=== PATIENT | male | born 1965 | race Caucasian/White ===

== ENCOUNTER 2018-11-04 11:07 | Inpatient (IN) | payer OTHER ==
[~2018-11-04] VITALS: Ht 177.8 cm; Wt 113.4 kg
[2018-11-04] VITALS (15 sets, daily range): BP systolic 109–132; BP diastolic 72–92
[2018-11-04] MEDS ORDERED: ASPIRIN 81 MG CHEW TAB PO ONE (12:15)
[2018-11-04 12:29] LABS: BASOPHILS % 0.4 % (0.0-1.0); EOSINOPHILS # (AUTO) 0.2 (0.0-0.4); EOSINOPHILS % 2.4 % (0.0-6.0); HEMATOCRIT 47.6 % (38.2-49.6); HEMOGLOBIN 16.9 g/dL (14.0-18.0); LYMPHOCYTES # (AUTO) 1.8 (1.0-3.2); LYMPHOCYTES % 24.1 % (18.0-39.1); MEAN CORPUSCULAR HEMOGLOBIN 33.9 pg (28-32); MEAN CORPUSCULAR HGB CONC 35.5 g/dL (31-35); MEAN CORPUSCULAR VOLUME 95.6 fL (81-99); MONOCYTES # (AUTO) 0.5 (0.2-0.8); MONOCYTES % 6.5 % (4.4-11.3); NEUTROPHILS # (AUTO) 4.9 (2.1-6.9); NEUTROPHILS % 66.3 % (38.7-80.0); PLATELET COUNT 154 x10e3/uL (140-360); RED BLOOD COUNT 4.98 x10e6/uL (4.3-5.7); RED CELL DISTRIBUTION WIDTH 13.2 % (11.7-14.4)
[2018-11-04 12:37] LABS: INR 0.91; PROTHROMBIN TIME 12.7 seconds (11.9-14.5)
[2018-11-04 12:38] LABS: PARTIAL THROMBOPLASTIN TIME 31.5 seconds (23.8-35.5)
[2018-11-04 12:47] LABS: ALANINE AMINOTRANSFERASE 41 IU/L (0-55); ALBUMIN 4.3 g/dL (3.5-5.0); ALBUMIN/GLOBULIN RATIO 1.2 (0.8-2.0); ALKALINE PHOSPHATASE 63 IU/L (40-150); ANION GAP 13.2 mmol/L (8-16); BLOOD UREA NITROGEN 15 mg/dL (7-26); BUN/CREATININE RATIO 15 (6-25); CALCIUM 10.4 mg/dL (8.4-10.2); CARBON DIOXIDE 25 mmol/L (22-29); CHLORIDE 103 mmol/L (98-107); CREATINE KINASE 208 IU/L (30-200); EST GLOMERULAR FILTRATION RATE > 60 ML/MIN (60-); GLUCOSE 121 mg/dL (74-118); POTASSIUM 4.2 mmol/L (3.5-5.1); SODIUM 137 mmol/L (136-145)
--- NOTE | 2018-11-04 12:47 | Diagnostic Imaging Report ---
EXAMINATION: CHEST SINGLE (PORTABLE) INDICATION: Chest pain. COMPARISON: None FINDINGS: TUBES and LINES: None. LUNGS: Lungs are not well inflated, which limits sensitivity and specificity. There is central vascular congestion. There is no evidence of pneumonia or pulmonary edema. PLEURA: No pleural effusion or pneumothorax. HEART AND MEDIASTINUM: The cardiomediastinal silhouette is unremarkable. BONES AND SOFT TISSUES: No acute osseous abnormality. UPPER ABDOMEN: No free air under the diaphragm. IMPRESSION: No acute radiographic abnormality. Signed by: Dr. Krysten Morales MD on 11/04/2018 12:44 PM
[2018-11-04 12:51] LABS: CLARITY,URINE CLEAR (CLEAR); COLOR,URINE YELLOW (YELLOW)
[2018-11-04 12:52] LABS: BILIRUBIN,URINE NEGATIVE (NEGATIVE); KETONES,URINE NEGATIVE (NEGATIVE); LEUKOCYTE ESTERASE ,URINE NEGATIVE (NEGATIVE); NITRITE,URINE NEGATIVE (NEGATIVE); PROTEIN,URINE DIPSTICK NEGATIVE (NEGATIVE); URINE UROBILINOGEN 0.2 mg/dL (0.2 - 1)
[2018-11-04] MEDS ORDERED: MORPHINE SULFATE 2 MG/ML SYR 1ML IV PRN (13:30)
[2018-11-04] MEDS ORDERED: ONDANSETRON HCL INJ 2MG/ML 2ML 2 MG/ML VIAL IV PRN (13:30)
[2018-11-04] MEDS ORDERED: MORPHINE SULFATE INJ 4 MG/ML INJ 1ML IV PRN ×3 (13:45→21:00)
[2018-11-04] MEDS ORDERED: LOSARTAN-HCTZ1 EAC2 PO (13:50)
[2018-11-04] MEDS ORDERED: CRESTOR10 MG PO (13:50)
[2018-11-04] MEDS ORDERED: METOPROLOL SUCC25 MG PO (13:50)
[2018-11-04] MEDS: FAMOTIDINE 20 MG/2 ML VIAL IV SCH ×2 (14:00→22:09)
--- OUTSIDE RECORDS SUMMARY | 2018-11-04 14:39 | XMS REPORT ---
Author Author [facility] Address Unknown Phone Unavailable Care Team Providers Care Phytochemistry Professor Name Role Phone Deborah CRUZ Unavailable Unavailable Problems This patient has no known problems. Allergies, Adverse Reactions, Alerts This patient has no known allergies or adverse reactions. Medications This patient has no known medications. Results Test Description Test Time Test Comments Text Results Atomic Results Result Comments CHEST SINGLE (PORTABLE) 2018-11-04 12:36:00 [facility] [address] [place] [address] Patient Name: NII EATON MR #: [id number] : 1965 Age/Sex: 53/M Req #: [id number] Adm Physician: Ordered by: NAHED CRUZ MD Report #: [id number] Location: ER Room/Bed: Procedure: [id number] DX/CHEST SINGLE (PORTABLE) Exam Date: 11/04/18 Exam Time: 1222 REPORT STATUS: Signed EXAMINATION: CHEST SINGLE (PORTABLE) INDICATION: Chest pain. COMPARISON: None FINDINGS: TUBES and LINES: None. LUNGS: Lungs are not well inflated, which limits sensitivity and specificity. There is central vascular congestion. There is no evidence of pneumonia or pulmonary edema. PLEURA: No pleural effusion or pneumothorax. HEART AND MEDIASTINUM: The cardiomediastinal silhouette is unremarkable. BONES AND SOFT TISSUES: No acute osseous abnormality. UPPER ABDOMEN: No free air under the diaphragm. IMPRESSION: No acute radiographic abnormality. Signed by: Dr. Simona Molina MD on 11/04/2018 12:44 PM Dictated By: SIMONA MOLINA MD [id number] Transcribed By: HUBER on 11/04/18 1244 COPY TO: NAHED CRUZ MD
[2018-11-04] MEDS ORDERED: SODIUM CHLORIDE 0.9% 1000ML 1,000 ML IV ONE (15:00)
[2018-11-04] MEDS ORDERED: MIDAZOLAM HCL 2 MG/2 ML VIAL ONE ×4 (16:00→16:24)
[2018-11-04] MEDS ORDERED: LIDOCAINE HCL 2% LOCAL 20 ML VIAL ONE (16:01)
[2018-11-04] MEDS ORDERED: IOPAMIDOL 370 MG/ML 200 ML INFUS..BTL INJ ONE ×3 (16:01→16:52)
[2018-11-04] MEDS ORDERED: HEPARIN SOD/SOD CHLORIDE 2,000 ML ONE (16:01)
[2018-11-04] MEDS ORDERED: FENTANYL CITRATE/PF 100MCG/2 ML INJ ONE ×2 (16:01→17:39)
[2018-11-04] MEDS ORDERED: SODIUM CHLORIDE 0.9% 1000ML 1,000 ML ONE ×5 (16:01→17:07)
[2018-11-04] MEDS ORDERED: BIVALRIUDIN 250 MG/VIAL VIAL IV ONE ×2 (16:25→17:06)
[2018-11-04] MEDS ORDERED: SODIUM CHLORIDE 0.9% 50ML 50 ML ONE ×2 (16:26→17:08)
[2018-11-04] MEDS ORDERED: ASPIRIN 325 MG TAB ONE (16:27)
[2018-11-04] MEDS ORDERED: TICAGRELOR 90 MG TABLET ONE (16:27)
[2018-11-04] MEDS ORDERED: NITROGLYCERIN/D5W 200 MCG/ML 250 ML ONE (16:32)
[2018-11-04] MEDS ORDERED: NITROGLYCERIN 0.4 MG SUBL ONE (17:27)
--- NOTE | 2018-11-04 17:35 | NUR ---
Nitro 20mcg/minn started for persistent left harm pain unrelieved by analgescs. Dr purvis notified of HR beginning to become variable from 70-110's. PT has already been instructed not to bare down. rght groin dressing CDI. positive neurovascular function to lower right extremity -cgf
--- NOTE | 2018-11-04 17:40 | NUR ---
Fentanyl [address] purvis. family at bedside - [facility]
--- NOTE | 2018-11-04 18:30 | NUR ---
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 He says he has left upper back pain behind his left shoulder area that radiates down his left arm. Says his pain level is a "3" on a scale of 1- 10, with 10 being the most intense pain. Patient instructed to lay flat until 10pm and he verbalized understanding this. Respirations are even and unlabored. V/S are stable and his cardiac rhythm is Normal Sinus Rhythm. Family at bedside.
--- NOTE | 2018-11-04 18:40 | NUR ---
Right groin dressing is dry and intact without any ecchymosis. Site is soft upon palpation. 2+ Pedal Pulses bilaterally and both feet are warm and pink.
[2018-11-04] MEDS ORDERED: NITROGLYCERIN/D5W 200 MCG/ML 250 ML IV SCH (21:00)
[2018-11-04 21:07] LABS: CREATINE KINASE MB 15.9 ng/mL (0-5.0)
[2018-11-04] MEDS: LIDOCAINE 5% PATCH TP SCH (22:09)
[2018-11-04] MEDS: ACETAMINOPHEN 325 MG TAB PO PRN (22:10)
[2018-11-04] MEDS ORDERED: FAMOTIDINE 20 MG/2 ML VIAL IV ONE (22:11)
[2018-11-04] MEDS: ZOLPIDEM TARTRATE 10 MG TAB PO PRN (23:31)
[2018-11-05] VITALS (13 sets, daily range): BP systolic 106–146; BP diastolic 67–118
--- NOTE | 2018-11-05 01:01 | Operative Report ---
DATE OF PROCEDURE: 11/04/2018 SURGEON: Chan Pandey MD PROCEDURES: 1. Intracoronary stent placement in the left anterior descending artery. 2. Left heart catheterization. INDICATION: Unstable angina. COMPLICATIONS: None. ANESTHESIA: Versed, fentanyl, and lidocaine. TECHNIQUE: The right groin was draped and prepped in the usual fashion. The area was anesthetized with lidocaine. Standard Seldinger technique was used to place a 6-Ukrainian sheath into the right femoral artery without difficulty. A JL4 catheter was used to selectively engage the left coronary artery. A 3DRC catheter was used to selectively engage the right coronary artery. A pigtail catheter was used to perform a left ventriculogram. Attention was then turned to the 95% stenosis in the mid left anterior descending artery. The patient was bolused with Angiomax and given 180 mg of Brilinta. An XB 3.5 guiding catheter was used to selectively engage the left coronary artery. A Whisper wire was used to cross 95% stenosis. The area was predilated with a 2.5 mm x 12 mm balloon. A 3.0 x 12 mm stent was then deployed at 16 atmospheres for 30 seconds with minimal residual stenosis. An Angio-Seal device was used to close. RESULTS: As follows: 1. Normal left main trunk. 2. There is a large left anterior descending artery, which gave rise to medium-sized diagonal branch. There was 95% stenosis right at the OM in the midportion of the left anterior descending artery. 3. There was a medium-sized AV circumflex artery, which gave rise to a large bifurcating obtuse marginal branch. There was about 80% stenosis in the proximal AD circumflex artery. 4. There was a large dominant right coronary artery with minimal disease. 5. There was normal left ventricular size and function with an ejection fraction of 60%. CONCLUSION: Successful stent placement in the left anterior descending artery without complication. Chan Pandey MD DSH/MODL /[id number] cc: Brandin Lynch MD
[2018-11-05 04:55] LABS: BASOPHILS % 0.4 % (0.0-1.0); EOSINOPHILS # (AUTO) 0.1 (0.0-0.4); EOSINOPHILS % 1.4 % (0.0-6.0); HEMATOCRIT 43.7 % (38.2-49.6); HEMOGLOBIN 15.3 g/dL (14.0-18.0); LYMPHOCYTES # (AUTO) 1.9 (1.0-3.2); LYMPHOCYTES % 18.5 % (18.0-39.1); MEAN CORPUSCULAR HEMOGLOBIN 33.2 pg (28-32); MEAN CORPUSCULAR VOLUME 94.8 fL (81-99); MONOCYTES # (AUTO) 0.8 (0.2-0.8); MONOCYTES % 7.7 % (4.4-11.3); NEUTROPHILS # (AUTO) 7.3 (2.1-6.9); NEUTROPHILS % 71.7 % (38.7-80.0); PLATELET COUNT 152 x10e3/uL (140-360); RED BLOOD COUNT 4.61 x10e6/uL (4.3-5.7); RED CELL DISTRIBUTION WIDTH 13.2 % (11.7-14.4)
[2018-11-05 05:23] LABS: CREATINE KINASE MB 59.2 ng/mL (0-5.0)
[2018-11-05 06:04] LABS: ALANINE AMINOTRANSFERASE 39 IU/L (0-55); ALBUMIN 3.8 g/dL (3.5-5.0); ALBUMIN/GLOBULIN RATIO 1.2 (0.8-2.0); ALKALINE PHOSPHATASE 53 IU/L (40-150); ANION GAP 14.9 mmol/L (8-16); BLOOD UREA NITROGEN 12 mg/dL (7-26); BUN/CREATININE RATIO 15 (6-25); CALCIUM 9.3 mg/dL (8.4-10.2); CARBON DIOXIDE 20 mmol/L (22-29); CHLORIDE 106 mmol/L (98-107); CHOL/HDL RATIO 4.2 (3.9-4.7); CHOLESTEROL 193 MD/DL (0-199); CREATININE, SERUM 0.82 mg/dL (0.72-1.25); EST GLOMERULAR FILTRATION RATE > 60 ML/MIN (60-); GLUCOSE 110 mg/dL (74-118); HDL CHOLESTEROL 46 MG/DL (40-60); LDL CHOLESTEROL 119 MG/DL (60-130); POTASSIUM 3.9 mmol/L (3.5-5.1); SODIUM 137 mmol/L (136-145); TRIGLYCERIDES 142 MG/DL (0-149)
[2018-11-05] MEDS ORDERED: SODIUM CHLORIDE 0.9% 1000ML 1,000 ML IV SCH (07:00)
[2018-11-05] MEDS: ASPIRIN 81 MG ENTERIC COATED PO SCH (08:04)
[2018-11-05] MEDS: ACETAMINOPHEN 325 MG TAB PO PRN (08:05)
[2018-11-05] MEDS: TICAGRELOR 90 MG TABLET PO SCH ×2 (08:05→17:12)
[2018-11-05] MEDS: LIDOCAINE 5% PATCH TP SCH (08:19)
[2018-11-05] MEDS: LOSARTAN POTASSIUM 100 MG TAB PO SCH (08:30)
[2018-11-05] MEDS: HYDROCHLOROTHIAZIDE 25 MG TAB PO SCH (08:31)
[2018-11-05] MEDS: METOPROLOL SUCCINATE 25 MG TAB XL PO SCH (08:31)
[2018-11-05] MEDS ORDERED: TRAMADOL HCL 50 MG TAB PO PRN (08:45)
[2018-11-05] MEDS ORDERED: FAMOTIDINE 20 MG/2 ML VIAL IV SCH (09:00)
[2018-11-05] MEDS ORDERED: ASPIRIN 325 MG TAB PO SCH (09:00)
[2018-11-05] MEDS ORDERED: ASPIRIN 81 MG ENTERIC COATED PO SCH (09:00)
[2018-11-05] MEDS ORDERED: NON-FORMULARY MEDICATION (Losartan/Hydrochlorothiazide (Losartan-Hctz 100-12.5 Mg Tab) 1 T PO SCH (09:00)
--- NOTE | 2018-11-05 10:20 | NUR ---
PT AMBULATED IN ROOM. RESTING IN RECLINER DENIES DIZZINESS OR CHEST PAIN.
--- NOTE | 2018-11-05 13:59 | NUR ---
CASE MANAGEMENT INITIAL ASSESSMENT [employer] to bedside to discuss plan of care with patient/family. CM/SW role and care transitions discussed. Anticipated discharge plan discussed along with duration of care. CM/SW discussed patients right to make decisions in care. CM/SW work hours given. Patient lives: W ROOM MATE IN A 1 STORY HOME Admit/Transfer: ER Hospital/ER visits since last admit: NONE POA/Emergency contact: AURORA THURMAN / [phone] Current/Previous Home Health: NONE PCP/Follow-up Care: DR. TOLEDO Current/Previous DME: NONE Other Services: NONE Employment Status: [employer] Areas of Concerns: NONE Referral Needs: NONE Education Needs: DIET AND EXERCISE IMM/DELGADO given and signed (if applicable): N/A Goal for discharge: RETURN HOME CM/SW left business card at the bedside with contact information. Name and number was also written on the patients whiteboard. Patient verbalized understanding of discussion. CM will follow-up with ongoing discharge and transition of care needs.
--- NOTE | 2018-11-05 14:34 | NUR ---
Nutrition Screen Note RD Recommendation for Physician: - Continue Cardiac diet - Diet education provided 11/05 Plan of Care: RD following, monitoring for tolerance and adequacy Nutrition reason for involvement: Nutrition Risk Trigger- MST Primary Diagnose(s): chest pain PMH: no H&P in electronic chart Ht: 70 in Wt: 250 lb BMI: 35.9 kg/m2 IBW: [address] Assessment: (11/05) 53 YOM admitted for chest pain, seen today per MST score. 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 Pt denies GI distress. Pt reports intentional 60# wt loss over the past year following a keto diet. Pt receptive to diet education at time of visit, pt educated on heart healthy nutrition therapy emphasizing high sodium foods to avoid, high fat foods to avoid, and encouraged intake of fresh vegetables, fruits and whole grains. All questions answered at time of visit. Chart reviewed. Labs and meds reviewed. Will monitor and continue to follow. Current Diet: Cardiac Malnutrition Evaluation (11/05) The patient does not meet criteria for a specified degree of malnutrition at this time. Will re-evaluate at follow-up as appropriate. Diet Education Needs Assessment: Diet education indicated, pt receptive- diet education provided 11/05. Learner(s): pt Barriers: none Cultural/Language Modifications: none Readiness: ready Method: handout, discussion Topics: heart healthy nutrition therapy Understanding/Compliance: good Nutrition Care Level: Low Signed: Traci Guevara RD, LD, [facility]
[2018-11-05] MEDS ORDERED: ATORVASTATIN 20 MG TAB PO SCH (17:00)
[2018-11-05] MEDS ORDERED: ONDANSETRON HCL 4 MG ORAL DISINTEGRATING TAB PO PRN (17:30)
--- NOTE | 2018-11-05 19:16 | NUR ---
Patient was received lying in bed. Family at bedside. AAO x 4. Patient had no complaints of pain. Respirations even and non-labored. Patient instructed to call for assistance when needed. Call light within reach.
[2018-11-05] MEDS: FAMOTIDINE 20 MG TAB PO SCH (20:52)
[2018-11-05] MEDS ORDERED: ATORVASTATIN 40 MG TAB PO SCH (21:00)
[2018-11-05] MEDS ORDERED: LIDOCAINE 5% PATCH TP SCH (21:00)
[2018-11-05] MEDS: ZOLPIDEM TARTRATE 10 MG TAB PO PRN (21:54)
--- NOTE | 2018-11-06 01:37 | Consultation ---
DATE OF CONSULTATION: HISTORY OF PRESENT ILLNESS: The patient is a 53-year-old gentleman with a history of left shoulder pain. The patient started with left shoulder pain for a couple of months ago, was treated with anti-inflammatories. Workup was done and the patient was found to have coronary artery disease. A stent in the LAD was placed by Dr. Pandey and also the patient has an 80% occlusive lesion in the circumflex and minimal disease in the RCA. The patient continues to have chest pain despite the stent being placed and the patient describes pain as 6/10, especially on exertion and then dissipates. The patient has to take anti-inflammatory i.e. Ultracet and the patient's pain dissipates. Currently, the patient is on lidocaine patch and the pain is still persistent. PAST MEDICAL HISTORY: History of hyperlipidemia, history of hypertension. FAMILY HISTORY: Positive for history of heart disease. SOCIAL HISTORY: Noncontributory. ALLERGIES: THE PATIENT IS ALLERGIC TO DOXYCYCLINE. MEDICATIONS: The patient takes losartan, hydrochlorothiazide, metoprolol, and rosuvastatin. Currently, the patient is on lidocaine and atorvastatin. SURGICAL HISTORY: Noncontributory. PHYSICAL EXAMINATION: GENERAL: The patient is alert and oriented x3. HEENT: Normocephalic, atraumatic. Pupils are reactive to light and accommodation. CVS: S1, S2 normal. Regular rate and rhythm. SHOULDER: Negative Broussard signs. Good range of motion. Positive for tenderness on the infrascapular and suprascapular area. The patient with sharp tenderness on those areas. ABDOMEN: Nontender, nondistended. EXTREMITIES: No clubbing, no cyanosis, no edema. LABORATORY VALUES: CBC normal. Chemistries all normal. Troponins were elevated at 7.310 yesterday. ASSESSMENT: 1. Non-STEMI with stent in the LAD. 2. Left shoulder pain. Suggest MRI of the T-spine and the shoulder to rule out any etiology. 3. Hypertension. Continue with antihypertensive. 4. Hyperlipidemia. Continue antihyperlipidemic agents. 5. Coronary artery disease. We will continue to monitor the patient along with Dr. Pandey. Further recommendation per clinical course. We will possibly discharge tomorrow after possible MRI of the T-spine and the shoulder. MD RORY Beasley/MODL /[id number]
[2018-11-06 04:00] VITALS: BP 116/65
--- NOTE | 2018-11-06 07:34 | Progress Note ---
DATE: SUBJECTIVE: The patient is a 53-year-old gentleman, status post cardiac stent to LAD secondary to NSTEMI. The patient is currently complaining of left shoulder pain. The angioplasty did not help with the pain in the shoulder and are radiation to the arm. The patient is scheduled for an MRI today to rule out any other pathology or musculoskeletal pathology. The patient also has 80% stent of the circumflex, which will be repaired or stented in another date, approximately 1 to 2 weeks from today. OBJECTIVE: VITAL SIGNS: Currently, temperature is 97.5, pulse of 88, respirations of 21, blood pressure is 111/65. HEENT: Normocephalic, atraumatic. Pupils are reactive to light and accommodation. CVS: S1 and S2 are normal. Regular rate and rhythm. ABDOMEN: Nontender, nondistended. EXTREMITIES: No clubbing, no cyanosis, no edema. MUSCULOSKELETAL SYSTEM: Positive for tenderness in the thoracic spine and also in the left latissimus dorsi and infraspinatus area. ASSESSMENT: 1. Wqv-LG-zqmyynifu myocardial infarction. The patient is currently on losartan and aspirin at this time. The patient is also on beta-blockade and lovastatin. 2. Left-sided shoulder pain. We will do an MRI. The patient can be discharged home once the MRI is negative. The patient also needs an anti-platelet medication, which will be discussed with Dr. Pnadey. 3. Further recommendation per clinical course. The patient can be discharged home from Medicine standpoint if MRI is negative and will need a stent in the later date. MD RORY Beasley/GENIL /[id number]
[2018-11-06 07:47] VITALS: BP 126/73
[2018-11-06] MEDS: TICAGRELOR 90 MG TABLET PO SCH (07:49)
[2018-11-06] MEDS: ASPIRIN 81 MG ENTERIC COATED PO SCH (07:49)
[2018-11-06] MEDS: FAMOTIDINE 20 MG TAB PO SCH (07:50)
[2018-11-06] MEDS: HYDROCHLOROTHIAZIDE 25 MG TAB PO SCH (07:50)
[2018-11-06] MEDS: METOPROLOL SUCCINATE 25 MG TAB XL PO SCH (07:50)
[2018-11-06] MEDS: LOSARTAN POTASSIUM 100 MG TAB PO SCH (07:50)
--- NOTE | 2018-11-06 10:25 | NUR ---
UNABLE TO DO MRI DUE TO STENT PLACEMENT ON SATURDAY. CAN DO AFTER 6 WEEKS PER RADIOLOGY. LEFT MESSAGE FOR DR. ALEXIS. AWAITING CALL BACK.
--- NOTE | 2018-11-06 11:21 | NUR ---
RE-PAGED DR. ALEXIS AT THIS TIME. AWAITING CALL BACK.
[2018-11-06 11:53] VITALS: BP 115/73
--- NOTE | 2018-11-06 11:58 | NUR ---
RECEIVED CALL BACK FROM DR. ALEXIS. STATES HAVE PT F/U OUTPT FOR MRI AND CAN D/C HOME. SPOKE TO JORGE REBOLLEDO WITH DR. Lori HOOPER STATES OK TO D/C HOME.
--- NOTE | 2018-11-06 12:30 | NUR ---
DISCHARGE INSTRUCTIONS GIVEN. PT VERBALIZED UNDERSTANDING. BILAT AC IV D/C AND PRESSURE DRESSING APPLIED. PT AWAITING RIDE HOME.
== END 2018-11-06 12:50 | disposition home or self-care (01) | DRG 247 ==
LOC: ER 11:07 → UNDOADMOB 14:37 → ERHOLD 14:37 → CATH LAB 17:43 → ICU 18:21 → MED/SURG2 11-05 17:13
PROVIDERS: ADMIT Internal Medicine Cardiovascular Disease; ATTEND Internal Medicine Cardiovascular Disease
PROC: 027034Z Dilation of Coronary Artery, One Artery with Drug-eluting Intraluminal Device, Percutaneous Approach (ICD-10-PCS; principal; 2018-11-04)
PROC: 4A023N7 Measurement of Cardiac Sampling and Pressure, Left Heart, Percutaneous Approach (ICD-10-PCS; 2018-11-04)
PROC: B2111ZZ Fluoroscopy of Multiple Coronary Arteries using Low Osmolar Contrast (ICD-10-PCS; 2018-11-04)
PROC: B2151ZZ Fluoroscopy of Left Heart using Low Osmolar Contrast (ICD-10-PCS; 2018-11-04)
DX: I21.4 Non-ST elevation (NSTEMI) myocardial infarction (principal); I25.110 Atherosclerotic heart disease of native coronary artery with unstable angina pectoris; I10 Essential (primary) hypertension; E78.5 Hyperlipidemia, unspecified; Z95.5 Presence of coronary angioplasty implant and graft; E66.9 Obesity, unspecified; Z68.35 Body mass index [BMI] 35.0-35.9, adult
CPT/HCPCS: 36415; 71045; 80053; 80061; 81001; 82550; 82553; 83036; 83880; 84484; 85025; 85610; 85730; 92928; 93005; 93458; 99284; C1725; C1769; C1874; C1887; J0583; J2001; J2250; J2270; J7030; Q9967

== ENCOUNTER 2018-11-15 12:00 | Observation (INO) | payer OTHER ==
[~2018-11-15] VITALS: Ht 177.8 cm; Wt 109.9 kg
[~2018-11-15 12:00] MED LIST: CRESTOR10 MG PO; LOSARTAN-HCTZ1 EAC2 PO; METOPROLOL SUCC25 MG PO
[2018-11-15 12:32] LABS: BASOPHILS % 0.4 % (0.0-1.0); EOSINOPHILS # (AUTO) 0.2 (0.0-0.4); EOSINOPHILS % 2.2 % (0.0-6.0); HEMATOCRIT 46.2 % (38.2-49.6); HEMOGLOBIN 16.4 g/dL (14.0-18.0); LYMPHOCYTES # (AUTO) 2.2 (1.0-3.2); LYMPHOCYTES % 24.2 % (18.0-39.1); MEAN CORPUSCULAR HEMOGLOBIN 33.9 pg (28-32); MEAN CORPUSCULAR HGB CONC 35.5 g/dL (31-35); MEAN CORPUSCULAR VOLUME 95.5 fL (81-99); MONOCYTES # (AUTO) 0.7 (0.2-0.8); MONOCYTES % 8.2 % (4.4-11.3); NEUTROPHILS # (AUTO) 5.7 (2.1-6.9); NEUTROPHILS % 64.7 % (38.7-80.0); PLATELET COUNT 188 x10e3/uL (140-360); RED BLOOD COUNT 4.84 x10e6/uL (4.3-5.7); RED CELL DISTRIBUTION WIDTH 12.6 % (11.7-14.4)
[2018-11-15 12:43] LABS: INR 0.95; PROTHROMBIN TIME 13.2 seconds (11.9-14.5)
[2018-11-15 12:44] LABS: PARTIAL THROMBOPLASTIN TIME 32.2 seconds (23.8-35.5)
--- NOTE | 2018-11-15 12:45 | NUR ---
RECOLLECT GREEN/RED TOP. SENT TO LAB
--- NOTE | 2018-11-15 12:55 | Diagnostic Imaging Report ---
EXAMINATION: CHEST SINGLE (PORTABLE) INDICATION: ^PALPITATIONS COMPARISON: Chest x-ray 11/04/2018 FINDINGS: AP view TUBES and LINES: None. LUNGS: Lungs are well inflated. Lungs are clear. There is no evidence of pneumonia or pulmonary edema. PLEURA: No pleural effusion or pneumothorax. HEART AND MEDIASTINUM: The cardiomediastinal silhouette is unremarkable. BONES AND SOFT TISSUES: No acute osseous lesion. Soft tissues are unremarkable. UPPER ABDOMEN: No free air under the diaphragm. IMPRESSION: No acute thoracic abnormality. Signed by: Dr. Raman Allen M.D. on 11/15/2018 12:52 PM
[2018-11-15 13:14] LABS: ALANINE AMINOTRANSFERASE 85 IU/L (0-55); ALBUMIN 4.2 g/dL (3.5-5.0); ALBUMIN/GLOBULIN RATIO 1.3 (0.8-2.0); ALKALINE PHOSPHATASE 67 IU/L (40-150); ANION GAP 15.4 mmol/L (8-16); BLOOD UREA NITROGEN 14 mg/dL (7-26); BUN/CREATININE RATIO 13 (6-25); CALCIUM 9.8 mg/dL (8.4-10.2); CARBON DIOXIDE 22 mmol/L (22-29); CHLORIDE 106 mmol/L (98-107); CREATINE KINASE 142 IU/L (30-200); CREATININE, SERUM 1.05 mg/dL (0.72-1.25); EST GLOMERULAR FILTRATION RATE > 60 ML/MIN (60-); GLUCOSE 116 mg/dL (74-118); MAGNESIUM 2.9 MG/DL (1.3-2.1); POTASSIUM 4.4 mmol/L (3.5-5.1); SODIUM 139 mmol/L (136-145)
[2018-11-15 13:34] LABS: THYROID STIMULATING HORMONE 1.151 uIU/mL (0.350-4.940)
[2018-11-15 13:59] LABS: CLARITY,URINE CLEAR (CLEAR); COLOR,URINE YELLOW (YELLOW); LEUKOCYTE ESTERASE ,URINE NEGATIVE (NEGATIVE)
[2018-11-15 14:00] LABS: BILIRUBIN,URINE NEGATIVE (NEGATIVE); KETONES,URINE NEGATIVE (NEGATIVE); NITRITE,URINE NEGATIVE (NEGATIVE); PROTEIN,URINE DIPSTICK NEGATIVE (NEGATIVE); URINE UROBILINOGEN 0.2 mg/dL (0.2 - 1)
[2018-11-15 14:08] LABS: BACTERIA,URINE FEW /HPF; EPITHELIAL CELLS,URINE FEW /LPF; RBC,URINE 0-5 /HPF (0-5); WBC,URINE (MAN) 0-5 /HPF (0-5)
[2018-11-15] MEDS ORDERED: ONDANSETRON HCL INJ 2MG/ML 2ML 2 MG/ML VIAL IV PRN (15:15)
[2018-11-15] MEDS: FAMOTIDINE 20 MG/2 ML VIAL IV SCH (15:52)
[2018-11-15 16:32] VITALS: BP 104/65
[2018-11-15] MEDS ORDERED: METOPROLOL TARTRATE 25 MG TAB PO SCH (17:00)
[2018-11-15] MEDS ORDERED: LIPITOR20 MG PO (18:26)
[2018-11-15] MEDS ORDERED: METOPROLOL SUCC50 MG PO (18:26)
[2018-11-15] MEDS ORDERED: LOSARTAN-HCTZ1 EACH PO (18:26)
[2018-11-15] MEDS ORDERED: AMBIEN5 MG PO (18:26)
[2018-11-15] MEDS ORDERED: BRILINTA90 MG PO (18:26)
--- NOTE | 2018-11-15 19:03 | NUR ---
WALKING ROUNDS PERFORMED, RECEIVED PT LAYING SEMI FOWLERS IN BED, AAOX3, RR EVEN AND NON-LABORED, ON RA. NO S/SX OF DISTRESS NOTED. LEFT PT LAYING SEMI FOWLERS IN BED, BED IN LOW LOCKED POSITION, SIDE RAILS UPX2, CALL LIGHT AND PHONE WITHIN REACH.
--- NOTE | 2018-11-15 19:07 | NUR ---
report given to oncoming nurse, for continued care.
[2018-11-15 20:00] VITALS: BP_SYST 114; BP_SYST 171; BP_DIAS 64; BP_DIAS 74
[2018-11-15] MEDS ORDERED: ZOLPIDEM TARTRATE 5 MG TAB PO SCH (21:00)
[2018-11-15] MEDS ORDERED: ATORVASTATIN 20 MG TAB PO SCH (21:00)
[2018-11-15 21:21] VITALS: BP 114/64
[2018-11-15] MEDS: TICAGRELOR 90 MG TABLET PO SCH (21:24)
[2018-11-15 23:12] LABS: CREATINE KINASE MB 0.7 ng/mL (0-5.0)
[2018-11-16] VITALS: BP 125/71
[2018-11-16 04:00] VITALS: BP_SYST 109; BP_SYST 126; BP_DIAS 62; BP_DIAS 74
[2018-11-16] MEDS: FAMOTIDINE 20 MG/2 ML VIAL IV SCH (04:04)
[2018-11-16 04:56] LABS: BASOPHILS % 0.4 % (0.0-1.0); EOSINOPHILS # (AUTO) 0.3 (0.0-0.4); EOSINOPHILS % 2.8 % (0.0-6.0); HEMOGLOBIN 15.4 g/dL (14.0-18.0); LYMPHOCYTES # (AUTO) 2.8 (1.0-3.2); MEAN CORPUSCULAR HEMOGLOBIN 33.6 pg (28-32); MEAN CORPUSCULAR HGB CONC 35.8 g/dL (31-35); MEAN CORPUSCULAR VOLUME 93.9 fL (81-99); MONOCYTES # (AUTO) 0.8 (0.2-0.8); MONOCYTES % 8.5 % (4.4-11.3); NEUTROPHILS # (AUTO) 5.3 (2.1-6.9); NEUTROPHILS % 58.1 % (38.7-80.0); PLATELET COUNT 172 x10e3/uL (140-360); RED BLOOD COUNT 4.58 x10e6/uL (4.3-5.7); RED CELL DISTRIBUTION WIDTH 12.4 % (11.7-14.4)
[2018-11-16 05:23] LABS: CREATINE KINASE MB 0.6 ng/mL (0-5.0)
[2018-11-16 05:40] LABS: ALANINE AMINOTRANSFERASE 74 IU/L (0-55); ALBUMIN 3.8 g/dL (3.5-5.0); ALBUMIN/GLOBULIN RATIO 1.3 (0.8-2.0); ALKALINE PHOSPHATASE 63 IU/L (40-150); BLOOD UREA NITROGEN 11 mg/dL (7-26); BUN/CREATININE RATIO 11 (6-25); CALCIUM 9.6 mg/dL (8.4-10.2); CARBON DIOXIDE 22 mmol/L (22-29); CHLORIDE 109 mmol/L (98-107); EST GLOMERULAR FILTRATION RATE > 60 ML/MIN (60-); GLUCOSE 95 mg/dL (74-118); SODIUM 140 mmol/L (136-145)
--- NOTE | 2018-11-16 07:00 | NUR ---
Received patient resting in bed, side rails upx2, call light within reach. No s/s of acute distress noted. Denies pain. Will continue to monitor.
[2018-11-16 07:26] VITALS: BP 116/84
[2018-11-16 07:42] VITALS: BP 116/84
[2018-11-16] MEDS: TICAGRELOR 90 MG TABLET PO SCH (08:09)
[2018-11-16] MEDS ORDERED: LOSARTAN POTASSIUM 100 MG TAB PO SCH (09:00)
[2018-11-16] MEDS ORDERED: METOPROLOL SUCCINATE 25 MG TAB XL PO SCH (09:00)
[2018-11-16] MEDS ORDERED: TICAGRELOR 90 MG TABLET PO SCH (09:00)
[2018-11-16] MEDS ORDERED: ATORVASTATIN 20 MG TAB PO SCH (09:00)
[2018-11-16] MEDS ORDERED: HYDROCHLOROTHIAZIDE 25 MG TAB PO SCH (09:00)
--- NOTE | 2018-11-16 10:10 | NUR ---
Patient has been cleared to discharge per Dr.Hamer Aguillon. Dr.John anderson. See orders
--- NOTE | 2018-11-16 11:25 | NUR ---
Left AC IV discontinued. No signs of infiltration noted. 2x2 gauze and tape placed. AAOX4 to time, person, place, situation. Respirations even and unlabored. Denies any pain. Discharge instructions and all belongings taken with patient. No rx available at this time. Taken via wheelchair to personal car.
[2018-11-16 11:30] VITALS: BP 125/77
--- NOTE | 2018-11-16 15:22 | History and Physical ---
REASON FOR ADMISSION: This is a 53-year-old gentleman comes in with palpitation and near syncope. HISTORY OF PRESENT ILLNESS: The patient is a 53-year-old gentleman recently admitted to the hospital for shoulder pain, was found to have a coronary artery disease. The patient underwent angioplasty to the LAD. The patient was sent home on Brilinta and also on atorvastatin. On the day of admission, the patient sat up and was watching TV and developed a sudden episode of palpitation, noted fast beating heart and almost felt as if he was going to pass out. The patient was able to sustain equilibrium and was able to sit down and no other symptoms were noted after that. The patient is asymptomatic at this point of time. No other complaints. No chest pains at this time. Positive for shortness of breath. No nausea, vomiting, or diarrhea. No constipation. No rectal bleeding. PAST MEDICAL HISTORY: History of hypertension, history of hyperlipidemia, history of coronary artery disease, history of recent angioplasty, history of insomnia, and history of obesity. PAST SURGICAL HISTORY: Tonsillectomy and adenoidectomy. MEDICATIONS: He takes at home atorvastatin, Brilinta 90 mg twice a day, metoprolol 50 mg once a day. The patient is on losartan/hydrochlorothiazide 100/25 and atorvastatin as mentioned and zolpidem 5 mg. ALLERGIES: ADVERSE REACTIONS TO DOXYCYCLINE. SOCIAL HISTORY: No EtOH. No IV drug abuse. No history of smoking. REVIEW OF SYSTEMS: Negative for chest pain. Positive for some shortness of breath. No nausea, vomiting, or diarrhea. No constipation. No rectal bleeding. No hematochezia. No hematemesis. No blurry vision. No diplopia. Positive for near syncope as mentioned above. OBJECTIVE: VITAL SIGNS: Temperature is 96.7, pulse of 76, respiration of 20, blood pressure is 116/84, pulse oximetry of 98% on room air. HEENT: Normocephalic, atraumatic. Pupils are reactive to light and accommodation. CVS: S1, S2 normal. Regular rate and rhythm. ABDOMEN: Nontender, nondistended. EXTREMITIES: No clubbing. No cyanosis and/or no edema. LABORATORY VALUES: Initial white count is 8.89, hemoglobin was 16.4, hematocrit of 46.2. Sodium 139, potassium 4.4, BUN 14, creatinine of 1.05. Bilirubin was 0.7, ALT was 85, AST was 48. Troponins x3 has been negative. TSH is 1.151. IMAGING STUDIES: Chest x-ray shows no acute thoracic abnormalities. Telemetry monitoring has been so far normal. Troponins have been negative x3. The patient has a cardiology consult with Dr. Pandey. PLAN: Plan is to discharge the patient home today. Follow up with Dr. Pandey on a given date. Further recommendation per clinical course. We will continue to monitor the patient as an outpatient. MD TRICIA BeasleyJ/MODL /[id number]
--- NOTE | 2018-11-16 16:12 | Consultation ---
DATE OF CONSULTATION: Cardiology Consultation CHIEF COMPLAINT: The patient is a 53-year-old with dizziness. HISTORY OF PRESENT ILLNESS: The patient had a stent placed in his left anterior descending artery about two weeks ago. The patient returned to the emergency room saying he felt dizzy and lightheaded for 45 minutes. The patient was observed overnight on telemetry. Cardiac enzymes were all negative and the patient had no further symptoms. PAST MEDICAL HISTORY: Significant for: 1. Intracoronary stent placement in the LAD two weeks ago. 2. Coronary artery disease. 3. Hypertension. MEDICATIONS: At home include: 1. Brilinta. 2. Crestor. 3. Losartan. 4. Metoprolol. 5. Aspirin. SOCIAL HISTORY: The patient does not drink and does not smoke. FAMILY HISTORY: There is no known family history of coronary artery disease. PHYSICAL EXAMINATION: GENERAL: The patient is a well-developed, well-nourished male, in no obvious distress. VITAL SIGNS: Included a temperature of 98.8, blood pressure 140/80, pulse is 76. HEAD, EARS, EYES, NOSE, AND THROAT: The patient's cranium was normocephalic and atraumatic. Extraocular muscles were intact. Sclerae were anicteric. The pupils were equal, round, reactive to light. There is no pallor or cyanosis of the oral mucosa. There is no erythema or edema of the throat. NECK: Supple. No jugular venous distention. No carotid bruits. CHEST: Clear to auscultation and percussion. CARDIAC: Demonstrated normal S1 and S2 with no murmurs, rubs, or gallops. ABDOMINAL: Demonstrated good bowel sounds. No tenderness and no masses. EXTREMITIES: No clubbing, no cyanosis and no edema. NEUROLOGIC: The patient was alert and oriented x3. Cranial nerves 2-12 are intact. Motor strength was +5/+5 in all limbs. IMAGING DATA: The patient's EKG demonstrated normal sinus rhythm with some premature ventricular contractions. IMPRESSION: The patient is a 53-year-old with an episode of dizziness. All the patient's cardiac enzymes are negative and the patient's telemetry is unremarkable. RECOMMENDATIONS: As follows: 1. I feel it is okay for the patient to be discharged. 2. The patient should continue the same medications. 3. I feel the patient is already scheduled for a staged stent placement in the circumflex artery on November 28, 2018. MD CARRIE Manjarrez/YAS /[id number] cc: Dany Fish MD
== END 2018-11-16 11:30 | disposition home or self-care (01) ==
LOC: ER 12:00 → ERHOLD 15:03 → MED/SURG2 16:14
PROVIDERS: ADMIT Family Medicine; ATTEND Family Medicine
DX: R42 Dizziness and giddiness (principal); R00.2 Palpitations; R55 Syncope and collapse; I10 Essential (primary) hypertension; I25.10 Atherosclerotic heart disease of native coronary artery without angina pectoris; F41.9 Anxiety disorder, unspecified; K21.9 Gastro-esophageal reflux disease without esophagitis; Z87.442 Personal history of urinary calculi; I95.9 Hypotension, unspecified; Z95.5 Presence of coronary angioplasty implant and graft; Z82.49 Family history of ischemic heart disease and other diseases of the circulatory system; E78.5 Hyperlipidemia, unspecified; Z88.8 Allergy status to other drugs, medicaments and biological substances
CPT/HCPCS: 36415 ×2; 71045; 80053 ×2; 81001; 82550 ×2; 82553 ×2; 83735; 83880; 84443; 84484 ×2; 85025 ×2; 85610; 85730; 93005; 99284; G0378 ×2

== ENCOUNTER 2018-11-25 20:43 | Inpatient (IN) | payer OTHER ==
[~2018-11-25] VITALS: Ht 177.8 cm; Wt 108.9 kg
[~2018-11-25 20:43] MED LIST changes: +AMBIEN5 MG PO; +BRILINTA90 MG PO; +LIPITOR20 MG PO; +LOSARTAN-HCTZ1 EACH PO; +METOPROLOL SUCC50 MG PO
[2018-11-25] MEDS ORDERED: SODIUM CHLORIDE 0.9% 1000ML 1,000 ML IV STA (21:04)
[2018-11-25] MEDS ORDERED: ONDANSETRON HCL INJ 2MG/ML 2ML 2 MG/ML VIAL IV NR (21:30)
[2018-11-25] MEDS ORDERED: MORPHINE SULFATE INJ 4 MG/ML INJ 1ML IV NR (21:30)
[2018-11-25] MEDS ORDERED: ASPIRIN 81 MG CHEW TAB PO ONE (21:30)
[2018-11-25 21:40] LABS: BASOPHILS % 0.4 % (0.0-1.0); EOSINOPHILS # (AUTO) 0.2 (0.0-0.4); EOSINOPHILS % 1.9 % (0.0-6.0); HEMATOCRIT 45.4 % (38.2-49.6); HEMOGLOBIN 16.2 g/dL (14.0-18.0); LYMPHOCYTES # (AUTO) 2.5 (1.0-3.2); LYMPHOCYTES % 29.4 % (18.0-39.1); MEAN CORPUSCULAR HEMOGLOBIN 33.3 pg (28-32); MEAN CORPUSCULAR HGB CONC 35.7 g/dL (31-35); MEAN CORPUSCULAR VOLUME 93.2 fL (81-99); MONOCYTES # (AUTO) 0.6 (0.2-0.8); MONOCYTES % 6.7 % (4.4-11.3); NEUTROPHILS # (AUTO) 5.2 (2.1-6.9); NEUTROPHILS % 61.4 % (38.7-80.0); PLATELET COUNT 167 x10e3/uL (140-360); RED BLOOD COUNT 4.87 x10e6/uL (4.3-5.7); RED CELL DISTRIBUTION WIDTH 12.6 % (11.7-14.4)
[2018-11-25 21:55] LABS: PROTHROMBIN TIME 13.7 seconds (11.9-14.5)
[2018-11-25 21:56] LABS: PARTIAL THROMBOPLASTIN TIME 32.1 seconds (23.8-35.5)
--- NOTE | 2018-11-25 22:02 | Diagnostic Imaging Report ---
Examination: Single AP view of the chest. COMPARISON: None. INDICATION: chest pain DISCUSSION: Lines/tubes: None. Lungs: The lungs are well inflated and clear. No pneumonia or pulmonary edema. Pleura: No pleural effusion or pneumothorax. Heart and mediastinum: The heart and the mediastinum are unremarkable. Bones and soft tissues: No acute bony abnormalities. IMPRESSION: 1. No acute cardiopulmonary abnormalities. Signed by: Dr. Carlos Lerma M.D. on 11/25/2018 9:58 PM
[2018-11-25 22:05] LABS: ALANINE AMINOTRANSFERASE 75 IU/L (0-55); ALBUMIN 4.4 g/dL (3.5-5.0); ALBUMIN/GLOBULIN RATIO 1.4 (0.8-2.0); ALKALINE PHOSPHATASE 64 IU/L (40-150); ANION GAP 17.7 mmol/L (8-16); BLOOD UREA NITROGEN 14 mg/dL (7-26); BUN/CREATININE RATIO 13 (6-25); CARBON DIOXIDE 20 mmol/L (22-29); CHLORIDE 106 mmol/L (98-107); CREATINE KINASE 189 IU/L (30-200); CREATININE, SERUM 1.05 mg/dL (0.72-1.25); EST GLOMERULAR FILTRATION RATE > 60 ML/MIN (60-); GLUCOSE 88 mg/dL (74-118); MAGNESIUM 2.4 MG/DL (1.3-2.1); POTASSIUM 3.7 mmol/L (3.5-5.1); SODIUM 140 mmol/L (136-145)
[2018-11-25] MEDS ORDERED: ONDANSETRON HCL INJ 2MG/ML 2ML 2 MG/ML VIAL IV PRN (22:45)
[2018-11-25] MEDS ORDERED: ENOXAPARIN SODIUM INJ 100 MG/ML SYR SC ONE (22:45)
[2018-11-25] MEDS ORDERED: NITROGLYCERIN 0.4 MG SUBL SL PRN (22:45)
[2018-11-25] MEDS ORDERED: MORPHINE SULFATE INJ 4 MG/ML INJ 1ML IV PRN (22:45)
[2018-11-25 23:38] LABS: BILIRUBIN,URINE NEGATIVE (NEGATIVE); CLARITY,URINE CLEAR (CLEAR); COLOR,URINE YELLOW (YELLOW); KETONES,URINE 1+ (NEGATIVE); LEUKOCYTE ESTERASE ,URINE NEGATIVE (NEGATIVE); NITRITE,URINE NEGATIVE (NEGATIVE); PROTEIN,URINE DIPSTICK NEGATIVE (NEGATIVE); URINE UROBILINOGEN 0.2 mg/dL (0.2 - 1)
[2018-11-25] MEDS: FAMOTIDINE 20 MG/2 ML VIAL IV SCH (23:40)
[2018-11-25 23:49] LABS: BACTERIA,URINE RARE /HPF; EPITHELIAL CELLS,URINE RARE /LPF; RBC,URINE 0-5 /HPF (0-5); WBC,URINE (MAN) 0-5 /HPF (0-5)
[2018-11-26] VITALS (10 sets, daily range): BP systolic 109–141; BP diastolic 65–77
--- NOTE | 2018-11-26 00:30 | NUR ---
RECEIVED PATIENT AOX4, NO SIGNS OF DISTRESS, VITALS ARE STABLE, AND RELAXING COMFORTABLY. BED IS LOW, SIDE RAILS UP, CALL LIGHT WITHIN REACH WILL CONTINUE TO MONITOR.
--- NOTE | 2018-11-26 01:10 | NUR ---
COULD NOT FIND PATIENTS NAME AND ROOM NUMBER IN THE MEDICATION [facility]. CALLED PHARMACY FOR AN UPDATE, SAID THEY WERE WORKING ON SITUATION, WILL CONTINUE TO MONITOR.
[2018-11-26] MEDS ORDERED: ZOLPIDEM TARTRATE 10 MG TAB PO ONE ×3 (01:57→02:00)
--- NOTE | 2018-11-26 02:20 | NUR ---
WAS FINALLY ABLE TO GIVE MEDICATION TO PATIENT AFTER BEING ADDED TO [facility]. PATIENT RESTING COMFORTABLY CONTINUING TO MONITOR.
[2018-11-26] MEDS: SODIUM CHLORIDE 0.9% 1000ML 1,000 ML IV SCH ×2 (07:00→09:00)
--- NOTE | 2018-11-26 07:00 | NUR ---
RCD PT AT BED PT IS ALERT AND ORIENTED PT RESTING ON BED PT NPO FOR PROCEDURE BED LOW AND LOCKED CALL LIGHT IN REACH
[2018-11-26 07:15] LABS: BASOPHILS % 0.5 % (0.0-1.0); EOSINOPHILS # (AUTO) 0.2 (0.0-0.4); EOSINOPHILS % 2.5 % (0.0-6.0); HEMATOCRIT 43.9 % (38.2-49.6); HEMOGLOBIN 15.2 g/dL (14.0-18.0); LYMPHOCYTES # (AUTO) 2.1 (1.0-3.2); LYMPHOCYTES % 32.9 % (18.0-39.1); MEAN CORPUSCULAR HEMOGLOBIN 33.9 pg (28-32); MEAN CORPUSCULAR HGB CONC 34.6 g/dL (31-35); MONOCYTES # (AUTO) 0.5 (0.2-0.8); MONOCYTES % 7.5 % (4.4-11.3); NEUTROPHILS # (AUTO) 3.6 (2.1-6.9); NEUTROPHILS % 56.3 % (38.7-80.0); PLATELET COUNT 124 x10e3/uL (140-360); RED BLOOD COUNT 4.48 x10e6/uL (4.3-5.7); RED CELL DISTRIBUTION WIDTH 12.8 % (11.7-14.4)
--- NOTE | 2018-11-26 07:30 | NUR ---
DR HOOPER CAME TO SEE THE PT HE PLANNING TO DO THE PROCEDURE ON TOMORROW
[2018-11-26 07:32] LABS: ALANINE AMINOTRANSFERASE 63 IU/L (0-55); ALBUMIN 3.7 g/dL (3.5-5.0); ALBUMIN/GLOBULIN RATIO 1.3 (0.8-2.0); ALKALINE PHOSPHATASE 56 IU/L (40-150); ANION GAP 11.1 mmol/L (8-16); BLOOD UREA NITROGEN 11 mg/dL (7-26); BUN/CREATININE RATIO 11 (6-25); CALCIUM 9.3 mg/dL (8.4-10.2); CARBON DIOXIDE 23 mmol/L (22-29); CHLORIDE 109 mmol/L (98-107); CREATININE, SERUM 1.03 mg/dL (0.72-1.25); EST GLOMERULAR FILTRATION RATE > 60 ML/MIN (60-); GLUCOSE 80 mg/dL (74-118); POTASSIUM 4.1 mmol/L (3.5-5.1); SODIUM 139 mmol/L (136-145)
[2018-11-26 07:56] LABS: CREATINE KINASE 136 IU/L (30-200)
--- NOTE | 2018-11-26 08:02 | Progress Note ---
DATE: 11/26/2018 SUBJECTIVE: This is a 53-year-old gentleman with a history of coronary artery disease with recent angioplasty to the LAD, was in usual state of health until yesterday and the patient had some severe pain while he was working. The patient had pain 7/10, intense, going up to the left jaw and the left upper extremity. The patient's pain continued to be in the 7/10 to 8/10 in intensity. The patient came to the ED. The patient was admitted for chest pain, rule out acute coronary syndrome. PAST MEDICAL HISTORY: As noticed above: 1. Coronary artery disease with recent stenting to the LAD. 2. Hypertension. 3. History of chronic back pain. 4. History of anxiety. 5. The patient also has history of hyperlipidemia. MEDICATIONS: He is on atorvastatin 20 mg, losartan and hydrochlorothiazide 100/25, metoprolol 25 mg, Brilinta 90 mg b.i.d., and zolpidem 5 mg at nighttime. PAST SURGICAL HISTORY: Appendectomy, tonsillectomy, cardiac cath as mentioned above. ALLERGIES: HISTORY OF ALLERGY TO DOXYCYCLINE. REVIEW OF SYSTEMS: Positive for chest pain. Positive for shortness of breath, the patient could not walk half a block at least. No hematochezia. No hematemesis. No melena. No dysuria. No skin rashes. Positive for feeling fatigued, extreme weakness too. FAMILY HISTORY: Positive for hypertension, coronary artery disease and congestive heart failure in the family. The patient also has history of acute myocardial infarction in the mother and sister too. ADDITIONAL HISTORY: The patient also has a history of having scheduled for cardiac cath on Saturday, two days away. OBJECTIVE: VITAL SIGNS: Temperature is 97.1, pulse of 73, respirations 16, blood pressure is 109/65, pulse oximetry 100% on room air. HEENT: Normocephalic, atraumatic. Pupils are reactive to light and accommodation. CVS: S1, S2 normal. Regular rate and rhythm. EXTREMITIES: No clubbing, no cyanosis, no edema. ABDOMEN: Soft and nontender. LABORATORY VALUES: Initial white count is 8.51, hemoglobin of 16.2, hematocrit of 45.4, platelets were 167. Chemistry, sodium of 140, potassium 3.7, BUN of 14, creatinine of 1.05. ALT and AST slightly elevated with an elevated magnesium. IMAGING: Chest x-ray showed no cardiac thoracic abnormalities. The patient's troponin's were negative first set. ASSESSMENT: 1. Acute coronary syndrome. 2. History of coronary artery disease. 3. History of hypertension. 4. Hyperlipidemia. PLAN: To continue to monitor the patient. The patient is going to have a procedure today. We will go ahead and hydrate with fluid. The patient with some fluids at 70 mL an hour. Cardiac cath done today. Further recommendation per clinical course. We can start all his medications. Further recommendation per clinical course. MD TRICIA BeasleyJ/MODL /[id number]
[2018-11-26] MEDS: METOPROLOL SUCCINATE 25 MG TAB XL PO SCH (09:00)
[2018-11-26] MEDS: TICAGRELOR 90 MG TABLET PO SCH ×2 (09:00→16:56)
[2018-11-26] MEDS ORDERED: HYDROCHLOROTHIAZIDE 25 MG TAB PO SCH (09:00)
[2018-11-26] MEDS ORDERED: METOPROLOL TARTRATE 25 MG TAB PO SCH (09:00)
[2018-11-26] MEDS: FAMOTIDINE 20 MG/2 ML VIAL IV SCH (09:00)
[2018-11-26] MEDS ORDERED: LOSARTAN POTASSIUM 100 MG TAB PO SCH (09:00)
[2018-11-26] MEDS: ATORVASTATIN 20 MG TAB PO SCH (09:00)
[2018-11-26] MEDS ORDERED: TICAGRELOR 90 MG TABLET PO SCH (09:00)
[2018-11-26] MEDS ORDERED: ONDANSETRON HCL 4 MG ORAL DISINTEGRATING TAB PO PRN (15:45)
[2018-11-26 17:29] LABS: CREATINE KINASE MB 0.8 ng/mL (0-5.0)
--- NOTE | 2018-11-26 18:05 | Consultation ---
DATE OF CONSULTATION: 11/26/2018 CHIEF COMPLAINT: The patient is a 53-year-old, with chest pain. HISTORY OF PRESENT ILLNESS: The patient is a 53-year-old, who came to the hospital with recurrent chest pain and left shoulder pain and back pain. The patient had a stent placed in the left anterior descending artery about 2 weeks ago. The patient does have a known 80% stenosis in the AV circumflex artery. PAST MEDICAL HISTORY: Significant for: 1. Coronary artery disease. 2. Hypertension. MEDICATIONS: At home include Brilinta, metoprolol, losartan, and Lipitor. SOCIAL HISTORY: The patient does not drink. Does not smoke. FAMILY HISTORY: There is a known family history of coronary artery disease. PHYSICAL EXAMINATION: GENERAL: The patient is a well-developed, well-nourished male, in no distress. VITAL SIGNS: Included a temperature of 96.3, blood pressure 128/76. HEAD, EARS, EYES, NOSE, AND THROAT: The patient's cranium was normocephalic and atraumatic. Extraocular muscles are intact. Sclerae were anicteric. Pupils were equal, round, and reactive to light. There is no pallor or cyanosis of the oral mucosa. There is no erythema or edema of the throat. NECK: Supple. No jugular venous distention. No carotid bruits. CHEST: Clear to auscultation and percussion. CARDIAC: Demonstrated normal S1 and S2 with a short 2/6 systolic murmur. ABDOMEN: Demonstrated good bowel sounds. No tenderness and no masses. EXTREMITIES: There is no clubbing, no cyanosis, and no edema. NEUROLOGICAL: The patient was alert and oriented x3. Cranial nerves II through XII are intact. Motor strength Motor strength was +5/+5 in all limbs. IMAGING DATA: The patient's EKG demonstrated normal sinus rhythm with some nonspecific ST and T wave changes. IMPRESSION: The patient is a 53-year-old with recurrent angina and known coronary artery disease. Arrangements have been made to repeat the catheterization and check the previously placed left anterior descending artery stent and place a new stent in the AV circumflex artery. Chan Pandey MD [facility]/MODL /[id number] cc: Dany Fish MD
--- NOTE | 2018-11-26 18:40 | NUR ---
PT RESTING ON BED BED SIDE REPORT GIVEN TO ONCOMING NURSE
[2018-11-26] MEDS: LOSARTAN POTASSIUM 100 MG TAB PO SCH (20:53)
[2018-11-26] MEDS: ZOLPIDEM TARTRATE 5 MG TAB PO SCH (20:53)
[2018-11-26] MEDS: HYDROCHLOROTHIAZIDE 25 MG TAB PO SCH (20:53)
[2018-11-26] MEDS: FAMOTIDINE 20 MG TAB PO SCH (20:53)
[2018-11-27] VITALS (15 sets, daily range): BP systolic 105–130; BP diastolic 49–82
[2018-11-27] MEDS: SODIUM CHLORIDE 0.9% 1000ML 1,000 ML IV SCH (04:37)
[2018-11-27 05:05] LABS: BASOPHILS % 0.5 % (0.0-1.0); EOSINOPHILS # (AUTO) 0.2 (0.0-0.4); EOSINOPHILS % 2.9 % (0.0-6.0); HEMATOCRIT 41.8 % (38.2-49.6); HEMOGLOBIN 14.3 g/dL (14.0-18.0); LYMPHOCYTES # (AUTO) 2.3 (1.0-3.2); LYMPHOCYTES % 31.3 % (18.0-39.1); MEAN CORPUSCULAR HEMOGLOBIN 33.2 pg (28-32); MEAN CORPUSCULAR HGB CONC 34.2 g/dL (31-35); MONOCYTES # (AUTO) 0.6 (0.2-0.8); MONOCYTES % 7.6 % (4.4-11.3); NEUTROPHILS # (AUTO) 4.2 (2.1-6.9); NEUTROPHILS % 57.6 % (38.7-80.0); PLATELET COUNT 141 x10e3/uL (140-360); RED BLOOD COUNT 4.31 x10e6/uL (4.3-5.7); RED CELL DISTRIBUTION WIDTH 12.9 % (11.7-14.4)
[2018-11-27 05:30] LABS: ANION GAP 11.8 mmol/L (8-16); BLOOD UREA NITROGEN 10 mg/dL (7-26); BUN/CREATININE RATIO 10 (6-25); CALCIUM 9.3 mg/dL (8.4-10.2); CARBON DIOXIDE 23 mmol/L (22-29); CHLORIDE 106 mmol/L (98-107); CHOL/HDL RATIO 2.7 (3.9-4.7); CHOLESTEROL 105 MD/DL (0-199); CREATININE, SERUM 1.04 mg/dL (0.72-1.25); EST GLOMERULAR FILTRATION RATE > 60 ML/MIN (60-); GLUCOSE 81 mg/dL (74-118); HDL CHOLESTEROL 39 MG/DL (40-60); LDL CHOLESTEROL 42 MG/DL (60-130); MAGNESIUM 2.2 MG/DL (1.3-2.1); POTASSIUM 3.8 mmol/L (3.5-5.1); SODIUM 137 mmol/L (136-145); TRIGLYCERIDES 120 MG/DL (0-149)
--- NOTE | 2018-11-27 07:00 | NUR ---
A/C TO [employer] ARCHITECT TALKED DR ALEXIS REGARDING DIETARY CONSULT HE SAID HE DONT NEED THE DIETARY CONSULT
[2018-11-27] MEDS ORDERED: HEPARIN SOD/SOD CHLORIDE 2,000 ML ONE (07:01)
[2018-11-27] MEDS ORDERED: LIDOCAINE HCL 2% LOCAL 20 ML VIAL ONE (07:01)
[2018-11-27] MEDS ORDERED: IOPAMIDOL 370 MG/ML 200 ML INFUS..BTL INJ ONE (07:02)
--- NOTE | 2018-11-27 07:03 | Progress Note ---
DATE: 11/27/2018 SUBJECTIVE: The patient is a 53-year-old male with a history of coronary artery disease, status post angioplasty to LAD. The patient comes in with chest pain. The patient has a cardiac cath scheduled today. Troponins have been negative. The patient has been chest pain free for the last 24 hours. Medications have been continued. The patient is on Nitrostat at this time. PHYSICAL EXAMINATION: GENERAL: The patient is alert and oriented x3. VITAL SIGNS: Temperature of 96.6, pulse of 69, blood pressure is 105/58, and pulse oximetry of 97%. HEENT: Normocephalic, atraumatic. Pupils are reactive to light and accommodation. CVS: S1, S2 normal. Regular rate and rhythm. ABDOMEN: Nontender and nondistended. EXTREMITIES: No clubbing, no cyanosis, no edema. MEDICATIONS: Nitroglycerin, morphine sulfate, atorvastatin, metoprolol, zolpidem, losartan, and famotidine. The patient's hydrochlorothiazide and Brilinta have been stopped at this time. LABORATORY VALUES: White count is 7.36, hemoglobin of 14.3, hematocrit of 41.3. Chemistries, BUN and creatinine are 10 and 1.04. Magnesium is 2.2. LDL is 42. ASSESSMENT: Coronary artery disease, chest pain, rule out acute coronary syndrome, hyperlipidemia, hypertension. PLAN: Plan is to do angiogram today. Has been scheduled for angiogram today at 7:00 a.m. Further course depending on angiogram. We will continue to monitor the patient. Continue on statin. Continue his beta blockade and his ARB. Further recommendation per clinical course. Possible discharge today after cardiac catheterization. MD TRICIA BeasleyJ/MODL /[id number]
--- NOTE | 2018-11-27 07:15 | NUR ---
Patient off the unit for cardiac cath.
[2018-11-27] MEDS ORDERED: FENTANYL CITRATE/PF 100MCG/2 ML INJ ONE (07:19)
[2018-11-27] MEDS ORDERED: MIDAZOLAM HCL 2 MG/2 ML VIAL ONE ×2 (07:19→07:43)
[2018-11-27] MEDS ORDERED: SODIUM CHLORIDE 0.9% 1000ML 1,000 ML ONE (07:19)
[2018-11-27] MEDS ORDERED: NITROGLYCERIN/D5W 200 MCG/ML 250 ML ONE (07:20)
[2018-11-27] MEDS ORDERED: HEPARIN SOD (PORCINE) 1000 UNIT/ML 30ML ONE (07:20)
[2018-11-27] MEDS ORDERED: BIVALRIUDIN 250 MG/VIAL VIAL IV ONE (07:34)
[2018-11-27] MEDS ORDERED: SODIUM CHLORIDE 0.9% 50ML 50 ML ONE (07:35)
[2018-11-27] MEDS ORDERED: TICAGRELOR 90 MG TABLET ONE (07:36)
--- NOTE | 2018-11-27 08:40 | NUR ---
PT BACK AFTER PROCEDURE PT IS ALERT AND ORIENTED NO SIGNS OF BLEEDING ON THE PROCEDURE SITE RIGHT GROIN VITALS CHECKED INSTRUCTED THE PT AND FAMILY HE NEED BED REST UP TO 12 NOON HE SAID HE UNDERSTOOD ,BED LOW AND LOCKED FAMILY AT BED SIDE
--- NOTE | 2018-11-27 08:45 | NUR ---
CHECKED PEDAL PULSE AND PROCEDURE SITE NO SIGNS OF BLEEDING
[2018-11-27] MEDS: TICAGRELOR 90 MG TABLET PO SCH ×3 (09:00→16:31)
--- NOTE | 2018-11-27 09:30 | NUR ---
CHECKED PEDAL PULSE AND PROCEDURE SITE NO SIGNS OF BLEEDING
[2018-11-27] MEDS: FAMOTIDINE 20 MG TAB PO SCH ×2 (09:40→20:39)
[2018-11-27] MEDS: METOPROLOL SUCCINATE 25 MG TAB XL PO SCH (09:40)
[2018-11-27] MEDS: ATORVASTATIN 20 MG TAB PO SCH (09:40)
--- NOTE | 2018-11-27 11:09 | NUR ---
REPORT GIVEN TO ZEINAB CASTREJON
--- NOTE | 2018-11-27 11:10 | NUR ---
PT TRANSFERRED TO [place] [id number] IN SAFE CONDITION
--- NOTE | 2018-11-27 16:25 | Operative Report ---
DATE OF PROCEDURE: 11/27/2018 SURGEON: Chan Pandey MD PROCEDURE: 1. Intracoronary stent placement in the AV circumflex artery. 2. Coronary angiogram. COMPLICATIONS: None. ANESTHESIA: Versed, fentanyl, and lidocaine. TECHNIQUE: The right groin was draped and prepped in the usual fashion. The area was anesthetized with lidocaine. Standard Seldinger technique was used to place a 6-Ukrainian sheath into the right femoral artery without difficulty. An XB 3.5 guiding catheter was used to selectively engage the left coronary artery. The patient was bolused with Angiomax. The patient was given an extra dose of Brilinta. ChoICE PT wire was then used to cross the 80% stenosis in the AV circumflex artery. The area was pre-dilated with a 2.5 mm x 12 mm noncompliant balloon. A 2.5 mm x 20 mm Synergy stent was then deployed at 16 atmospheres at the site of stenosis. A second 2.5 mm x 8 mm stent was deployed right at the origin of the AV circumflex artery and at 69 atmospheres for 30 seconds. The stents were post dilated with a 2.5 mm x 12 mm noncompliant balloon. CONCLUSION: Successful stent placement in the AV circumflex artery without complication. Chan Pandey MD H/MODL /[id number] cc: Dany Fish MD
--- NOTE | 2018-11-27 19:30 | NUR ---
Received patient from day nurse, patient is alert and oriented x 3. patient is on room air, patient under went heart cath. the surgeon went through the right femoral, the site inspected dry, soft and dressing intact. safety and fall precautions maintained as per hospital protocol: bed in lowest position and locked, needed items beside bed and call june placed close to patient, patient instructed to use it to call nurses for any assistance needed, patient verbalized understanding. patient instructed to follow all instructions from surgeon, and denied any misunderstanding of post mobile home laborer instructions.
[2018-11-27] MEDS: ZOLPIDEM TARTRATE 5 MG TAB PO SCH (20:39)
[2018-11-27] MEDS: LOSARTAN POTASSIUM 100 MG TAB PO SCH (20:39)
[2018-11-27] MEDS: HYDROCHLOROTHIAZIDE 25 MG TAB PO SCH (20:39)
--- NOTE | 2018-11-27 22:40 | NUR ---
patient saturation is 99 percent on room air ambulating to the bathroom, patient states does not want the oxygen probe on at this time, patient is not in any form of distress or shortness of breath, probe removed and will attach it back when patient is ready for it.
[2018-11-28 00:12] VITALS: BP 116/64
[2018-11-28 04:44] VITALS: BP 100/73
[2018-11-28 05:27] LABS: BASOPHILS % 0.3 % (0.0-1.0); EOSINOPHILS # (AUTO) 0.2 (0.0-0.4); EOSINOPHILS % 2.7 % (0.0-6.0); HEMATOCRIT 45.4 % (38.2-49.6); HEMOGLOBIN 16.1 g/dL (14.0-18.0); LYMPHOCYTES % 23.3 % (18.0-39.1); MEAN CORPUSCULAR HEMOGLOBIN 33.7 pg (28-32); MEAN CORPUSCULAR HGB CONC 35.5 g/dL (31-35); MONOCYTES # (AUTO) 0.7 (0.2-0.8); MONOCYTES % 8.3 % (4.4-11.3); NEUTROPHILS # (AUTO) 5.6 (2.1-6.9); NEUTROPHILS % 65.1 % (38.7-80.0); PLATELET COUNT 137 x10e3/uL (140-360); RED BLOOD COUNT 4.78 x10e6/uL (4.3-5.7); RED CELL DISTRIBUTION WIDTH 12.6 % (11.7-14.4)
[2018-11-28 05:47] LABS: ALBUMIN 3.7 g/dL (3.5-5.0); ALBUMIN/GLOBULIN RATIO 1.2 (0.8-2.0); ANION GAP 12.6 mmol/L (8-16); CALCIUM 9.9 mg/dL (8.4-10.2); CHOL/HDL RATIO 2.8 (3.9-4.7); CREATININE, SERUM 1.31 mg/dL (0.72-1.25); POTASSIUM 4.6 mmol/L (3.5-5.1)
--- NOTE | 2018-11-28 07:02 | NUR ---
Patient condition throughout the night was stable, patient endorsed to next shift for continuity of care.
--- NOTE | 2018-11-28 07:18 | Progress Note ---
DATE: 11/28/2018 SUBJECTIVE: The patient is a 53-year-old gentleman, who comes in with chest pain. The patient had a stent yesterday, angioplasty yesterday. The patient is currently asymptomatic. Pain in the back is almost dissipated. Pain in the shoulder has dissipated too. The patient is currently asymptomatic. Slept well. No complaints, ready to go home. MEDICATIONS: Atorvastatin, famotidine, hydrochlorothiazide, losartan, metoprolol, morphine sulfate, nitroglycerin, ondansetron, Zofran, zolpidem, and fluids as needed. OBJECTIVE: VITAL SIGNS: Temperature is 98.6, pulse of 73, respirations of 20, blood pressure is 100/73, pulse oximetry of 99% on room air. GENERAL: The patient is alert and oriented x3. HEENT: Normocephalic, atraumatic. Pupils are reactive to light and accommodation. CVS: S1 and S2 are normal. Regular rate and rhythm. ABDOMEN: Nontender, nondistended. EXTREMITIES: No clubbing, no cyanosis, trace edema. ASSESSMENT: 1. Coronary artery disease, status post angioplasty. 2. Chest pain, resolved. 3. Hyperlipidemia. Continue on anti-hyperlipidemic. 4. Morbid obesity. 5. Reflux esophagitis. Continue with famotidine. PLAN: Plan is to discharge the patient today on ARBs, beta-blockade, and Brilinta. The patient to be followed up with Dr. Lynch, his primary care physician and also with Dr. Pandey, his commis chef. Further recommendation per clinical course. MD RORY Beasley/MODL /[id number]
[2018-11-28 07:20] VITALS: BP 104/78
--- NOTE | 2018-11-28 07:20 | NUR ---
Pt received resting in bed. Alert and oriented x4. Pt with dressing to right groin clean, dry and intact ([facility] access). Oriented to staff and surroundings. Encouraged to press call june if help needed. Pt verbalized understanding of teaching. Will monitor
[2018-11-28] MEDS: METOPROLOL SUCCINATE 25 MG TAB XL PO SCH (08:05)
[2018-11-28] MEDS: FAMOTIDINE 20 MG TAB PO SCH (08:05)
[2018-11-28] MEDS: TICAGRELOR 90 MG TABLET PO SCH (08:05)
--- NOTE | 2018-11-28 08:05 | NUR ---
Pt resting in bed. Call june within reach. Pt for discharge this AM but stated that his ride will be here after 930am. Will monitor
--- NOTE | 2018-11-28 09:25 | NUR ---
Pt given discharge instructions regarding meds, diet, activities, and follow up appointment. Pt verbalized understanding of teaching. Will follow up
--- NOTE | 2018-11-28 09:36 | NUR ---
Took pt out in wheelchair with all belongings
[2018-11-28] MEDS ORDERED: ATORVASTATIN 20 MG TAB PO SCH (21:00)
== END 2018-11-28 09:36 | disposition home or self-care (01) | DRG 247 ==
LOC: ER 20:43 → ERHOLD 23:02 → MED/SURG2 11-26 00:53 → IMCU 11-27 11:14
PROVIDERS: ADMIT Family Medicine; ATTEND Family Medicine
PROC: 027035Z Dilation of Coronary Artery, One Artery with Two Drug-eluting Intraluminal Devices, Percutaneous Approach (ICD-10-PCS; principal; 2018-11-27)
DX: I25.118 Atherosclerotic heart disease of native coronary artery with other forms of angina pectoris (principal); I10 Essential (primary) hypertension; E78.5 Hyperlipidemia, unspecified; K21.0 Gastro-esophageal reflux disease with esophagitis; E66.01 Morbid (severe) obesity due to excess calories; Z68.34 Body mass index [BMI] 34.0-34.9, adult
CPT/HCPCS: 36415; 71045; 80048; 80053; 80061; 81001; 82550; 82553; 83735; 83880; 84484; 85025; 85610; 85730; 92928; 93005; 96374; 99284; C1725; C1769; C1874; J0583; J1644; J1650; J2001; J2250; J2405; J7030; Q9967

== ENCOUNTER 2023-12-20 12:50 | Outpatient (RCR) | payer OTHER | END 2024-01-05 | LOC: PT 12:50 | PROVIDERS: ATTEND Physician Assistant | DX: M54.12 Radiculopathy, cervical region (principal) ==